=== PATIENT | female | born 1970 | race Caucasian/White ===

== ENCOUNTER 2024-04-13 16:19 | Emergency (ER) | payer SELFPAY, OTHER | END 2024-04-13 17:11 | disposition home or self-care (01) | LOC: ERS 16:19 | DX: S20.219A Contusion of unspecified front wall of thorax, initial encounter (principal); I10 Essential (primary) hypertension; V89.2XXA Person injured in unspecified motor-vehicle accident, traffic, initial encounter | CPT/HCPCS: 71046 ==